=== PATIENT | female | born 1995 | race Caucasian/White ===

== ENCOUNTER 2017-02-09 12:43 | Emergency (ER) | payer BC ==
[~2017-02-09] VITALS: Ht 157.5 cm; Wt 111.0 kg
[2017-02-09 12:55] VITALS: TEMP 36.8; Ht 157.5 cm; Wt 111.0 kg
[2017-02-09 13:01] VITALS: O2SAT 98
[2017-02-09 13:44] LABS: MEAN CELL VOLUME 79.5 fL (80-100); MEAN CORPUSCULAR HEMOGLOBIN 26.2 pg (25-34); MEAN CORPUSCULAR HGB CONC 32.9 g/dl (32-36); MEAN PLATELET VOLUME 9.2 fL (7.4-10.4); PLATELET COUNT 339 K/uL (130-400); RED BLOOD COUNT 4.78 M/uL (4.2-5.4); WHITE BLOOD COUNT 9.77 K/uL (4.8-10.8)
[2017-02-09 13:54] LABS: PARTIAL THROMBOPLASTIN RATIO 1.2; PROTHROMBIN TIME (PATIENT) 10.5 SECONDS (9.0-12.0)
[2017-02-09 14:09] LABS: BUN/CREATININE RATIO 12.2 (10-20); CALCIUM 8.3 mg/dl (8.5-10.1); CREATININE 0.65 mg/dl (0.60-1.20); POTASSIUM 3.8 mmol/L (3.5-5.1)
[2017-02-09 14:13] LABS: ALB/GLOB RATIO 0.8 (0.9-2); CKMB/CK RATIO 0.4 (0-3.0)
--- NOTE | 2017-02-09 14:17 | DIAGNOSTIC IMAGING REPORT ---
CHEST ONE VIEW PORTABLE CLINICAL HISTORY: Chest pain. COMPARISON STUDY: No previous studies for comparison. FINDINGS: Lung volumes are diminished. No pneumothorax or pleural effusion is present. Mild enlargement of the cardiac silhouette is likely technical. There is no evidence of pulmonary edema. There is no lobar consolidation. Note is made of curvilinear irregular calcifications projecting over the right upper quadrant. IMPRESSION: 1. Diminished lung volumes. No acute cardiopulmonary findings. 2. Curvilinear calcifications projecting over the right upper quadrant of the abdomen/lower chest. These are indeterminate but could reflect calcified costal cartilages. Electronically signed by: Jose Ash M.D. 02/09/2017 2:16 PM Dictated Date/Time: 02/09/2017 2:12 PM
--- NOTE | 2017-02-09 14:18 | EMERGENCY ROOM VISIT NOTE ---
History First contact with patient: 13:39 Chief Complaint: CHEST PAIN Stated Complaint: SHARP PAIN ON L SIDE, HURTS TO MOVE OR BREATHE Nursing Triage Summary: patient to ED for left sided chest pain since yesterday, states "its worse with breathing and when I move" History of Present Illness The patient is a 21 year old female who presents to the Emergency Room with complaints of left-sided chest pain under her left breast that she noticed yesterday morning. The pain is a sharp, stabbing sensation that is worse with coughing, inspiration and movement. The patient also had some numbness and tingling into her left arm. This has resolved. She denies any neck pain. The pain in her chest does not radiate anywhere. She denies any shortness of breath. She does not smoke. No control. No recent long travel. She has not taken anything for pain. The patient does note that she had a heart murmur that required surgery when she was 4 years old. Review of Systems 10 system review performed and negative unless noted in HPI or below Past Medical/Surgical History Heart murmur status post surgery in 1991 Social History Smoking Status: Never Smoker Alcohol Use: occasionally Occupation Status: [employer] student Current/Historical Medications No Active Prescriptions or Reported Meds Physical Exam Vital Signs Date Time Temp Pulse Resp B/P (MAP) Pulse Ox O2 Delivery O2 Flow Rate FiO2 02/09/17 14:39 73 18 112/93 98 Room Air 02/09/17 14:17 83 02/09/17 13:30 98 Room Air 02/09/17 13:01 98 Room Air 02/09/17 13:01 98 Room Air 02/09/17 12:55 36.8 78 20 127/96 98 Room Air Physical Exam VITALS: Vitals are noted on the nurse's note and reviewed by myself. Vital signs stable. GENERAL: 21-year-old female, in no acute distress, nondiaphoretic, well- developed well-nourished. SKIN: The skin was without rashes, erythema, edema, or bruising. HEAD: Normocephalic atraumatic. MOUTH: Mucous membranes moist. NECK: Supple without nuchal rigidity. No lymphadenopathy. Cervical spine is nontender. No JVD. HEART: Regular rate and rhythm without murmurs gallops or rubs. No tenderness elicited over the thorax with palpation LUNGS: Clear to auscultation bilaterally without wheezes, rales or rhonchi. No accessory muscle use. ABDOMEN: Positive bowel sounds x 4.Soft, nontender, without organomegaly. No guarding or rebound tenderness. MUSCULOSKELETAL: No muscle atrophy, erythema, or edema noted. Strength 5/5 throughout. NEURO: Patient was alert and oriented to person place and time. Normal sensation to touch. No focal neurological deficits. Medical Decision & Procedures ER Provider Diagnostic Interpretation: CXR IMPRESSION: 1. Diminished lung volumes. No acute cardiopulmonary findings. 2. Curvilinear calcifications projecting over the right upper quadrant of the abdomen/lower chest. These are indeterminate but could reflect calcified costal cartilages. Laboratory Results 02/09/17 13:20 02/09/17 13:20 Test 02/09/17 13:20 02/09/17 13:34 02/09/17 14:35 Red Blood Count 4.78 M/uL (4.2-5.4) Mean Corpuscular Volume 79.5 fL (80-100) Mean Corpuscular Hemoglobin 26.2 pg (25-34) Mean Corpuscular Hemoglobin Concent 32.9 g/dl (32-36) RDW Standard Deviation 39.9 fL (36.4-46.3) RDW Coefficient of Variation 13.9 % (11.5-14.5) Mean Platelet Volume 9.2 fL (7.4-10.4) Prothrombin Time 10.5 SECONDS (9.0-12.0) Prothromb Time International Ratio 1.0 (0.9-1.1) Activated Partial Thromboplast Time 31.0 SECONDS (21.0-31.0) Partial Thromboplastin Ratio 1.2 D-Dimer 290 ug/L FEU (0-500) Anion Gap 8.0 mmol/L (3-11) Est Creatinine Clear Calc Drug Dose 161.0 ml/min Estimated GFR () 147.1 Estimated GFR (Non- 126.9 BUN/Creatinine Ratio 12.2 (10-20) Calcium Level 8.3 mg/dl (8.5-10.1) Total Bilirubin 0.5 mg/dl (0.2-1) Aspartate Amino Transf (AST/SGOT) 18 U/L (15-37) Alanine Aminotransferase (ALT/SGPT) 22 U/L (12-78) Alkaline Phosphatase 106 U/L (45-117) Total Creatine Kinase 244 U/L (26-192) Creatine Kinase MB 1.0 ng/ml (0.5-3.6) Creatine Kinase MB Ratio 0.4 (0-3.0) Total Protein 7.9 gm/dl (6.4-8.2) Albumin 3.4 gm/dl (3.4-5.0) Globulin 4.5 gm/dl (2.5-4.0) Albumin/Globulin Ratio 0.8 (0.9-2) Bedside Troponin I < 0.030 ng/ml (0-0.045) Urine Test NEG (NEG) ECG Indication: chest pain Rate (beats per minute): 82 Rhythm: normal sinus Comparison ECG Date: no prior available ED Course Patient was seen and examined Vital signs including blood pressure were reviewed medications list was verified with patient Labs were obtained, and a saline lock was established The patient declined pain medications Imaging was performed reviewed The workup was reviewed with the patient. She voiced understanding, and was comfortable being discharged home. I reviewed discharge instructions the patient. They voiced understanding and had no further questions. Medical Decision Differential diagnosis: Acute myocardial infarction, cardiac arrhythmia, anemia , thyroid abnormality, pneumothorax, pneumonia, bronchitis, pericarditis, electrolyte imbalance, pleurisy, pulmonary embolus This patient is a 21-year-old female that presents to the emergency department with left-sided chest pain worse with movement. I cannot elicit any tenderness on exam. Her EKG does not show any signs of ischemia. Her troponin is negative. Her pain has been going on since yesterday. if this were cardiac, I would suspect a rise in the troponin. Her d-dimer is negative. She is not hypoxic or tachycardic. I have a very low suspicion of pulmonary embolus. Given the pain is worse with movement, I believe this pain is likely musculoskeletal in nature. She was instructed to take ibuprofen, and follow up with [facility]. She will return here with any new or worsening symptoms. This chart was completed in part utilizing [employer] Voice Recognition software. Attempts were made to minimize the grammatical errors, random word insertions, pronoun errors and incomplete sentences. Any formal questions or concerns about the content, text or information contained within the body of this dictation should be directly addressed to the provider for clarification. Medication Reconcilliation Current Medication List: was personally reviewed by me Blood Pressure Screening Patient's blood pressure: Normal blood pressure Impression Primary Impression: Left sided chest pain Departure Information Dispostion Home / Self-Care Condition GOOD Prescriptions No Active Prescriptions or Reported Meds Patient Instructions My [facility] Additional Instructions You were evaluated in the emergency department for chest pain. This is likely musculoskeletal pain. It is recommended that you follow-up with [facility] within the next 2 days for recheck. Please no strenuous activity while you are still having pain. Ibuprofen 600 mg every 8 hours as needed for pain. Return to the emergency department if you have any of the following symptoms: -Fever of 103F or greater -Persistent vomiting - Persistent diarrhea -Lethargy -Shortness of breath -Worsening pain
[2017-02-09 14:39] VITALS: BP 112/93; PULSE 73; O2SAT 98
== END 2017-02-09 15:07 | disposition home or self-care (01) ==
LOC: C.EDB 12:45 → C.EDA 15:07
DX: R07.9 Chest pain, unspecified (principal)